=== PATIENT | male | born 1925 | race Caucasian/White ===

== ENCOUNTER 2017-08-24 07:23 | Observation (INO) | payer MEDICARE, OTHER ==
[2017-08-24] MEDS ORDERED: Sodium Chloride 0.9% 10 ML Syringe FLUSH PRN (07:41)
[2017-08-24] MEDS ORDERED: Aspirin 81 MG Tab.Chew PO ONE ×2 (07:51→12:04)
--- NOTE | 2017-08-24 07:54 | EDM.PDOC ---
ED HPI GENERAL MEDICAL PROBLEM - General Chief Complaint: Chest Pain Stated Complaint: General c/o feeling ill Time Seen by Provider: 08/24/17 07:40 Source of Information: Reports: Patient History Limitations: Reports: No Limitations - History of Present Illness INITIAL COMMENTS - FREE TEXT/NARRATIVE: Patient is a 89-year-old who lives in the [facility] home was brought in for evaluation secondary to not feeling well generalized weakness. Patient states that he woke up this morning went to the cafeteria sat down wasn't feeling well, became diaphoretic went to the nurse's station to take his medicine and felt that he had to go the bathroom at that time patient had about 5 loose stools, the nurses called 911 and was transferred to [facility] patient denies chest pain at this time but does complain of generalized weakness Onset: Sudden Duration: Minutes:, Improving Location: Reports: Chest Quality: Reports: Other (Denies pain) Severity: Mild Improves with: Reports: Rest, Other (Patient feels better now states this all came in at 1) Worsens with: Reports: None Context: Reports: Other (6) Associated Symptoms: Reports: Diaphoresis - Related Data Allergies Allergy/AdvReac Type Severity Reaction Status Date / Time No Known Allergies Allergy Verified 08/24/17 07:46 Home Meds: Home Meds Aspirin [Halfprin] 81 mg PO DAILY@0600 08/24/17 [History] Furosemide [Lasix] 20 mg PO DAILY@0600 08/24/17 [History] Isosorbide Dinitrate 20 mg PO BID@0600,1700 08/24/17 [History] Lisinopril 40 mg PO DAILY@0600 08/24/17 [History] Metoprolol Tartrate 50 mg PO BID@0600,1700 08/24/17 [History] Multivitamins [Tab-A-[place]] 1 tab PO DAILY@0600 08/24/17 [History] Nitroglycerin [Nitrostat] 0.4 mg PO ASDIRECTED PRN 08/24/17 [History] Rosuvastatin [Crestor] 10 mg PO DAILY@0600 08/24/17 [History] Aspirin 324 mg PO ONETIME tab.chew 08/25/17 [Rx] Multivitamins [Tab-A-[place]] 1 tab PO DAILY@0600 tablet 08/25/17 [Rx] ED ROS GENERAL - Review of Systems Review Of Systems: See Below Constitutional: Reports: Diaphoresis (By history) HEENT: Reports: No Symptoms Respiratory: Reports: No Symptoms Cardiovascular: Reports: Blood Pressure Problem (Hypotensive) Endocrine: Reports: No Symptoms GI/Abdominal: Reports: Diarrhea : Reports: No Symptoms Musculoskeletal: Reports: No Symptoms Skin: Reports: No Symptoms ED EXAM, GENERAL - Physical Exam Exam: See Below Exam Limited By: No Limitations General Appearance: Alert, WD/WN, No Apparent Distress Ears: Normal External Exam, Normal Canal, Hearing Grossly Normal, Normal TMs Nose: Normal Inspection, Normal Mucosa, No Blood Throat/Mouth: Normal Inspection, Normal Lips, Normal Teeth, Normal Gums, Normal Oropharynx, Normal Voice, No Airway Compromise Head: Atraumatic, Normocephalic Neck: Normal Inspection, Supple, Non-Tender, Full Range of Motion Respiratory/Chest: No Respiratory Distress, Lungs Clear, Normal Breath Sounds, No Accessory Muscle Use, Chest Non-Tender Cardiovascular: Regular Rate, Rhythm, No Murmur GI/Abdominal: Soft, Non-Tender, No Organomegaly, No Distention, No Abnormal Bruit, Abnormal Bowel Sounds (Hyperactive bowel) (Male) Exam: Deferred Rectal (Males) Exam: Deferred Back Exam: Normal Inspection, Full Range of Motion, NT Extremities: Pedal Edema (+3) Neurological: Alert, Oriented, CN II-XII Intact, Normal Cognition, Normal Gait, Normal Reflexes, No Motor/Sensory Deficits Psychiatric: Normal Affect, Normal Mood Skin Exam: Warm, Dry, Intact, Normal Color, No Rash Course - Vital Signs Last Recorded V/S: Last Vital Signs Temp 98.5 F 08/25/17 12:00 Pulse 54 L 08/25/17 12:00 Resp 15 08/25/17 12:00 BP 139/58 L 08/25/17 12:00 Pulse Ox 96 08/25/17 12:00 - Orders/Labs/Meds Labs: Laboratory Tests 08/24/17 08/24/17 08/24/17 Range/Units 07:35 07:35 07:35 WBC 7.3 (4.0-10.2) K/uL RBC 3.33 L (4.33-5.41) M/uL Hgb 11.4 L (13.1-16.8) g/dL Hct 33.2 L (39.0-49.0) % MCV 99.7 H (84.0-98.0) fL MCH 34.2 H (28.2-33.3) pg MCHC 34.3 (31.7-36.0) g/dL RDW 13.4 (11.2-14.1) % Plt Count 214 (150-350) K/uL Neut % (Auto) 56.7 (45.0-80.0) % Lymph % (Auto) 31.1 (10.0-50.0) % [place] % (Auto) 9.3 (2.0-14.0) % Eos % (Auto) 2.6 (0.0-5.0) % Baso % (Auto) 0.3 (0.0-2.0) % Neut # (Auto) 4.17 (1.40-7.00) K/uL Lymph # (Auto) 2.28 (0.50-3.50) K/uL [place] # (Auto) 0.68 (0.00-1.00) K/uL Eos # (Auto) 0.19 (0.00-0.50) K/uL Baso # (Auto) 0.02 (0.00-0.20) K/uL D-Dimer, Quantitative (0-400) ng/mL Sodium 141 (136-145) mmol/L Potassium 3.7 (3.5-5.1) mmol/L Chloride 107 (98-107) mmol/L Carbon Dioxide 20.2 L (21.0-32.0) mmol/L BUN 38 H (7-18) mg/dL Creatinine 1.71 H (0.51-1.17) mg/dL Est Cr Clr Drug Dosing 29.29 mL/min Estimated GFR (MDRD) 38 mL/min Glucose 171 H (74-106) mg/dL Calcium 8.9 (8.5-10.1) mg/dL Troponin I 0.047 (0.000-0.056) ng/mL NT-Pro-B Natriuret Pep 9971 H (0-125) pg/mL 08/24/17 08/24/17 Range/Units 10:35 10:35 WBC (4.0-10.2) K/uL RBC (4.33-5.41) M/uL Hgb (13.1-16.8) g/dL Hct (39.0-49.0) % MCV (84.0-98.0) fL MCH (28.2-33.3) pg MCHC (31.7-36.0) g/dL RDW (11.2-14.1) % Plt Count (150-350) K/uL Neut % (Auto) (45.0-80.0) % Lymph % (Auto) (10.0-50.0) % [place] % (Auto) (2.0-14.0) % Eos % (Auto) (0.0-5.0) % Baso % (Auto) (0.0-2.0) % Neut # (Auto) (1.40-7.00) K/uL Lymph # (Auto) (0.50-3.50) K/uL [place] # (Auto) (0.00-1.00) K/uL Eos # (Auto) (0.00-0.50) K/uL Baso # (Auto) (0.00-0.20) K/uL D-Dimer, Quantitative 1100 H (0-400) ng/mL Sodium (136-145) mmol/L Potassium (3.5-5.1) mmol/L Chloride (98-107) mmol/L Carbon Dioxide (21.0-32.0) mmol/L BUN (7-18) mg/dL Creatinine (0.51-1.17) mg/dL Est Cr Clr Drug Dosing mL/min Estimated GFR (MDRD) mL/min Glucose (74-106) mg/dL Calcium (8.5-10.1) mg/dL Troponin I 0.052 (0.000-0.056) ng/mL NT-Pro-B Natriuret Pep (0-125) pg/mL Meds: Medications Discontinued Medications Generic Name Dose Route Start Last Admin Trade Name Freq PRN Reason Stop Dose Admin Aspirin 324 mg 08/24/17 07:51 08/24/17 08:02 Aspirin PO 08/24/17 07:52 324 mg ONETIME ONE Administration Aspirin 81 mg 08/25/17 08:00 Aspirin PO DAILY [facility] Aspirin 324 mg 08/25/17 06:00 Aspirin PO ONETIME [facility] Furosemide 20 mg 08/25/17 06:00 08/25/17 05:20 Lasix PO 20 mg DAILY@0600 [facility] Administration Sodium Chloride 1,000 mls @ 100 mls/hr 08/24/17 08:00 08/24/17 14:13 Normal Saline IV 100 mls/hr ASDIRECTED [facility] Administration Isosorbide Dinitrate 20 mg 08/24/17 17:00 08/25/17 05:20 Isordil PO 20 mg BID@0600,1700 [facility] Administration Lisinopril 40 mg 08/25/17 06:00 08/25/17 05:19 Prinivil PO 40 mg DAILY@0600 [facility] Administration Metoprolol Tartrate 25 mg 08/24/17 18:00 Lopressor PO BID [facility] Metoprolol Tartrate 50 mg 08/24/17 17:00 08/25/17 05:20 Lopressor PO 50 mg BID@0600,1700 [facility] Administration Multivitamins/Minerals/Vitamin C 1 tab 08/25/17 06:00 08/25/17 05:19 Tab-A-[place] PO 1 tab DAILY@0600 [facility] Administration Nitroglycerin 0.4 mg 08/24/17 12:00 Nitrostat SL ASDIRECTED PRN Chest Pain Ondansetron HCl 8 mg 08/24/17 11:55 Zofran Odt PO Q4H PRN Nausea/Vomiting Pantoprazole Sodium 40 mg 08/25/17 08:00 08/25/17 07:47 Protonix PO 40 mg DAILY [facility] Administration Rosuvastatin Calcium 10 mg 08/25/17 06:00 08/25/17 05:19 Crestor PO 10 mg DAILY@0600 [facility] Administration Simvastatin 10 mg 08/24/17 20:00 Zocor PO BEDTIME [facility] Sodium Chloride 10 ml 08/24/17 07:41 08/25/17 07:47 Saline Flush FLUSH 10 ml ASDIRECTED PRN Administration Keep Vein Open Departure - Departure Time of Disposition: 11:53 Disposition: Refer to Observation Reason for Transfer *Q: Other Condition: Fair Clinical Impression: Gastroenteritis, Renal insufficiency, Congestive heart failure Hypotension Qualifiers: Hypotension type: unspecified hypotension type Qualified Code(s): I95.9 - Hypotension, unspecified - Problem List & Annotations (1) Ruled out for myocardial infarction SNOMED Code(s): 852752706 Code(s): Z03.89 - ENCNTR FOR OBS FOR OTH SUSPECTED DISEASES AND COND RULED OUT Status: Acute Annotation/Comment:: Third component at 12 hours was back to baseline patient will be sent home (2) Gastroenteritis SNOMED Code(s): 65101521 Code(s): K52.9 - NONINFECTIVE GASTROENTERITIS AND COLITIS, UNSPECIFIED Status: Acute Annotation/Comment:: Diarrhea controlled without medication doing well (3) Hypotension SNOMED Code(s): 25294903 Code(s): I95.9 - HYPOTENSION, UNSPECIFIED Status: Acute Annotation/ Comment:: Hypotension result Qualifiers: Hypotension type: unspecified hypotension type Qualified Code(s): I95.9 - Hypotension, unspecified (4) Renal insufficiency SNOMED Code(s): 512844830 Code(s): N28.9 - DISORDER OF KIDNEY AND URETER, UNSPECIFIED Status: Acute Annotation/Comment:: Elevated creatinine secondary to dehydration will observe overnight IV fluids given (5) Congestive heart failure SNOMED Code(s): 07970477 Code(s): I50.9 - HEART FAILURE, UNSPECIFIED Status: Acute (6) Congestive heart failure SNOMED Code(s): 15987226 Code(s): I50.9 - HEART FAILURE, UNSPECIFIED Status: Acute Annotation/ Comment:: At this time patient is asymptomatic chest x-ray revealed no congestion but BNP elevated will observe - Problem List Review Problem List Initiated/Reviewed/Updated: Yes - Assessment/Plan Admission H&P: Please use this note as an admission H&P Plan: We will admit for observation
[2017-08-24] MEDS: Sodium Chloride 0.9% 1,000 ML IV SCH ×2 (08:00→14:13)
[2017-08-24] MEDS ORDERED: Ondansetron 4 MG Tab.DIS PO PRN (11:55)
[2017-08-24] MEDS ORDERED: Nitroglycerin 0.4 MG Tab.SL SL PRN (12:00)
[2017-08-24] MEDS: Isosorbide Dinitrate 20 MG Tab PO SCH (17:08)
[2017-08-24] MEDS: Metoprolol Tartrate 50 MG Tab PO SCH (17:08)
[2017-08-24] MEDS ORDERED: Metoprolol Tartrate 25 MG Tab PO SCH (18:00)
[2017-08-24] MEDS ORDERED: Simvastatin 10 MG Tab PO SCH (20:00)
[2017-08-25] MEDS: Isosorbide Dinitrate 20 MG Tab PO SCH (05:20)
[2017-08-25] MEDS: Metoprolol Tartrate 50 MG Tab PO SCH (05:20)
[2017-08-25] MEDS ORDERED: Lisinopril 20 MG Tab PO SCH (06:00)
[2017-08-25] MEDS ORDERED: Rosuvastatin 10 MG Tab PO SCH (06:00)
[2017-08-25] MEDS ORDERED: Furosemide 20 MG Tab PO SCH (06:00)
[2017-08-25] MEDS ORDERED: Aspirin 81 MG Tab.Chew PO SCH ×2 (06:00→08:00)
[2017-08-25] MEDS ORDERED: Multivitamin Tab PO SCH (06:00)
[2017-08-25] MEDS ORDERED: Pantoprazole 40 MG Tab.CR PO SCH (08:00)
--- NOTE | 2017-08-25 13:33 | PCM.DCSUM1 ---
Discharge Summary - Discharge Data Discharge Date: 08/25/17 Discharge Disposition: DC[facility] Condition: Good - Discharge Diagnosis/Problem(s) (1) Ruled out for myocardial infarction SNOMED Code(s): 209992197 ICD Code: Z03.89 - ENCNTR FOR OBS FOR OTH SUSPECTED DISEASES AND COND RULED OUT Status: Acute Current Visit: Yes Problem Details: Third component at 12 hours was back to baseline patient will be sent home (2) Gastroenteritis SNOMED Code(s): 31260171 ICD Code: K52.9 - NONINFECTIVE GASTROENTERITIS AND COLITIS, UNSPECIFIED Status: Acute Current Visit: Yes Problem Details: Diarrhea controlled without medication doing well (3) Hypotension SNOMED Code(s): 16695282 ICD Code: I95.9 - HYPOTENSION, UNSPECIFIED Status: Acute Current Visit: Yes Problem Details: Hypotension result Qualifiers: Hypotension type: unspecified hypotension type Qualified Code(s): I95.9 - Hypotension, unspecified (4) Renal insufficiency SNOMED Code(s): 974749483 ICD Code: N28.9 - DISORDER OF KIDNEY AND URETER, UNSPECIFIED Status: Acute Current Visit: Yes Problem Details: Elevated creatinine secondary to dehydration will observe overnight IV fluids given (5) Congestive heart failure SNOMED Code(s): 88349562 ICD Code: I50.9 - HEART FAILURE, UNSPECIFIED Status: Acute Current Visit : Yes (6) Congestive heart failure SNOMED Code(s): 17955786 ICD Code: I50.9 - HEART FAILURE, UNSPECIFIED Status: Acute Current Visit : Yes Problem Details: At this time patient is asymptomatic chest x-ray revealed no congestion but BNP elevated will observe - Discharge Plan Home Medications: Home Meds Aspirin [Halfprin] 81 mg PO DAILY@0608/24/17 [History] Furosemide [Lasix] 20 mg PO DAILY@59908/24/17 [History] Isosorbide Dinitrate 20 mg PO BID@0600,17008/24/17 [History] Lisinopril 40 mg PO DAILY@0608/24/17 [History] Metoprolol Tartrate 50 mg PO BID@0600,1700 08/24/17 [History] Multivitamins [Tab-A-[place]] 1 tab PO DAILY@59908/24/17 [History] Nitroglycerin [Nitrostat] 0.4 mg PO ASDIRECTED PRN 08/24/17 [History] Rosuvastatin [Crestor] 10 mg PO DAILY@0600 08/24/17 [History] Patient Handouts: Viral Gastroenteritis, Adult, Cardiac-Specific Troponin I and T Test, Heart Failure, Hypotension Forms: ED Department Discharge Referrals: Samara Wood MD [Primary Care Provider] - - Discharge Summary/Plan Comment DC Time >30 min.: No Discharge Summary/Plan Comment: Patient doing well refused transfer to [place] was ruled out patient responded nicely to fluids and medicine at this time it was noted that his d- dimer was elevated to 1100 patient denied any shortness of breath or chest pain was asymptomatic creatinine was elevated so CT of the chest was not done to rule out PE I feel that this is secondary to congestive heart failure and patient should do okay if further studies needed we will consider perfusion scan. - General Info Date of Service: 08/25/17 Functional Status: Reports: Tolerating Diet, Ambulating - Review of Systems General: Reports: No Symptoms HEENT: Reports: No Symptoms Pulmonary: Reports: No Symptoms Cardiovascular: Reports: No Symptoms Gastrointestinal: Reports: Other (Symptoms resolved) Genitourinary: Reports: No Symptoms Musculoskeletal: Reports: No Symptoms Skin: Reports: No Symptoms Neurological: Reports: No Symptoms Psychiatric: Reports: No Symptoms - Patient Data Vitals - Most Recent: Last Vital Signs Temp 98.5 F 08/25/17 12:00 Pulse 54 L 08/25/17 12:00 Resp 15 08/25/17 12:00 BP 139/58 L 08/25/17 12:00 Pulse Ox 96 08/25/17 12:00 Weight - Most Recent: 156 lb 8 oz I&O - Last 24 hours: Intake & Output 08/24/17 08/25/17 08/25/17 21:59 06:59 14:59 Intake Total 360 Output Total 550 Balance -190 Lab Results - Last 24 hrs: Laboratory Results - last 24 hr 08/24/17 08/25/17 08/25/17 Range/Units 19:37 07:03 07:03 WBC 8.1 (4.0-10.2) K/uL RBC 2.80 L (4.33-5.41) M/uL Hgb 9.8 L D (13.1-16.8) g/dL Hct 28.2 L (39.0-49.0) % MCV 100.7 H (84.0-98.0) fL MCH 35.0 H (28.2-33.3) pg MCHC 34.8 (31.7-36.0) g/dL RDW 13.5 (11.2-14.1) % Plt Count 182 (150-350) K/uL Neut % (Auto) 64.5 (45.0-80.0) % Lymph % (Auto) 19.9 (10.0-50.0) % [place] % (Auto) 13.2 (2.0-14.0) % Eos % (Auto) 2.2 (0.0-5.0) % Baso % (Auto) 0.2 (0.0-2.0) % Neut # (Auto) 5.19 (1.40-7.00) K/uL Lymph # (Auto) 1.60 (0.50-3.50) K/uL [place] # (Auto) 1.06 H (0.00-1.00) K/uL Eos # (Auto) 0.18 (0.00-0.50) K/uL Baso # (Auto) 0.02 (0.00-0.20) K/uL Sodium 143 (136-145) mmol/L Potassium 3.8 (3.5-5.1) mmol/L Chloride 110 H (98-107) mmol/L Carbon Dioxide 23.3 (21.0-32.0) mmol/L BUN 30 H (7-18) mg/dL Creatinine 1.57 H (0.51-1.17) mg/dL Est Cr Clr Drug Dosing 31.90 mL/min Estimated GFR (MDRD) 42 mL/min Glucose 86 (74-106) mg/dL Calcium 8.8 (8.5-10.1) mg/dL Troponin I 0.046 (0.000-0.056) ng/mL Med Orders - Current: Current Medications Aspirin (Aspirin) 324 mg PO ONETIME [facility] Furosemide (Lasix) 20 mg PO DAILY@0600 [facility] Last Admin: 08/25/17 05:20 Dose: 20 mg Sodium Chloride (Normal Saline) 1,000 mls @ 100 mls/hr IV ASDIRECTED [facility] Last Admin: 08/24/17 14:13 Dose: 100 mls/hr Isosorbide Dinitrate (Isordil) 20 mg PO BID@0600,1700 [facility] Last Admin: 08/25/17 05:20 Dose: 20 mg Lisinopril (Prinivil) 40 mg PO DAILY@0600 [facility] Last Admin: 08/25/17 05:19 Dose: 40 mg Metoprolol Tartrate (Lopressor) 50 mg PO BID@0600,1700 [facility] Last Admin: 08/25/17 05:20 Dose: 50 mg Multivitamins/Minerals/Vitamin C (Tab-A-[place]) 1 tab PO DAILY@0600 [facility] Last Admin: 08/25/17 05:19 Dose: 1 tab Nitroglycerin (Nitrostat) 0.4 mg SL ASDIRECTED PRN PRN Reason: Chest Pain Pantoprazole Sodium (Protonix) 40 mg PO DAILY [facility] Last Admin: 08/25/17 07:47 Dose: 40 mg Rosuvastatin Calcium (Crestor) 10 mg PO DAILY@0600 [facility] Last Admin: 08/25/17 05:19 Dose: 10 mg Sodium Chloride (Saline Flush) 10 ml FLUSH ASDIRECTED PRN PRN Reason: Keep Vein Open Last Admin: 08/25/17 07:47 Dose: 10 ml Discontinued Medications Aspirin (Aspirin) 324 mg PO ONETIME ONE Stop: 08/24/17 07:52 Last Admin: 08/24/17 08:02 Dose: 324 mg Aspirin (Aspirin) 81 mg PO DAILY [facility] Metoprolol Tartrate (Lopressor) 25 mg PO BID [facility] Ondansetron HCl (Zofran Odt) 8 mg PO Q4H PRN PRN Reason: Nausea/Vomiting Simvastatin (Zocor) 10 mg PO BEDTIME [facility] - Exam General: Reports: Alert, Oriented, Cooperative HEENT: Reports: Pupils Equal, Pupils Reactive, EOMI, Mucous Membr. Moist/[place] Neck: Reports: Supple Lungs: Reports: Clear to Auscultation, Normal Respiratory Effort Cardiovascular: Reports: Regular Rate, Regular Rhythm GI/Abdominal Exam: Normal Bowel Sounds, Soft, Non-Tender, No Organomegaly, No Distention, No Abnormal Bruit, No Mass, Pelvis Stable (Male) Exam: Deferred Rectal (Males) Exam: Deferred Back Exam: Reports: Normal Inspection, Full Range of Motion Extremities: Normal Inspection, Normal Range of Motion, Non-Tender, No Pedal Edema, Normal Capillary Refill Skin: Reports: Warm, Dry, Intact Neurological: Reports: No New Focal Deficit Psy/Mental Status: Reports: Alert, Normal Affect, Normal Mood *Q Meaningful Use (DIS) - VTE *Q VTE Criteria *Q: - Stroke *Q Stroke Criteria *Q: - AMI *Q AMI Criteria *Q:
== END 2017-08-25 14:20 ==
LOC: LL.ED 07:23 → LL.MS 11:45
PROVIDERS: ADMIT Family Medicine; ATTEND Family Medicine
DX: R53.1 Weakness (principal); K52.9 Noninfective gastroenteritis and colitis, unspecified; I95.9 Hypotension, unspecified; N28.9 Disorder of kidney and ureter, unspecified; I50.9 Heart failure, unspecified; Z79.82 Long term (current) use of aspirin; Z79.899 Other long term (current) drug therapy; Z03.89 Encounter for observation for other suspected diseases and conditions ruled out
CPT/HCPCS: 36415; 71045; 80048; 83880; 84484; 85025; 85379; 93005; 96360; 96361; 99285; A9270; G0378; J7030; J7050